=== PATIENT | male | born 1995 | race Caucasian/White ===

== ENCOUNTER 2022-05-14 19:01 | Emergency (ER) | payer SELFPAY ==
[~2022-05-14] VITALS: Ht 167.6 cm; Wt 99.8 kg
--- NOTE | 2022-05-14 19:10 | NUR ---
RECEIVED PT 27YRS MALE CAME FROM HOME C/O HEADAHE X1 DAY HX SZ
[2022-05-14 19:13] VITALS: BP 128/77
--- NOTE | 2022-05-14 19:33 | NUR ---
HAND OFF HEIDI AUGUST
[2022-05-14] MEDS ORDERED: CARBAMAZEPINE 200 MG TABLET ONE ×2 (19:48→19:51)
[2022-05-14] MEDS ORDERED: CARB200T PO (19:51)
[2022-05-14] MEDS ORDERED: CARBAMAZEPINE 200 MG TABLET PO ONE (20:00)
--- NOTE | 2022-05-14 20:10 | NUR ---
Patient discharged to home in stable condition. Written and verbal after care instructions given. Patient verbalizes understanding of instruction.
== END 2022-05-14 20:11 | disposition home or self-care (01) ==
LOC: ER 19:05
DX: Z76.0 Encounter for issue of repeat prescription (principal); Z86.69 Personal history of other diseases of the nervous system and sense organs; Z79.899 Other long term (current) drug therapy

== ENCOUNTER 2022-11-14 17:37 | Emergency (ER) | payer MEDICAID ==
[~2022-11-14] VITALS: Ht 167.6 cm; Wt 90.7 kg
[~2022-11-14 17:37] MED LIST: CARB200T PO
--- NOTE | 2022-11-14 17:45 | NUR ---
BIB [facility] 86 FROM HOME, SEIZURE EPISODE WITNESSED BY FAMILY, UNKNOWN SEIZURE MEDICATION, BLOOD SUGAR 110. PLACED IN BED, AAOX4, BREATHING EVEN AND UNLABORED SATURATING AT 97%RA.
[2022-11-14] MEDS ORDERED: CARBAMAZEPINE 200 MG TABLET PO ONE (18:00)
[2022-11-14] MEDS ORDERED: CARBAMAZEPINE 200 MG TABLET ONE (18:07)
--- NOTE | 2022-11-14 19:21 | NUR ---
Patient discharged to home in stable condition. Written and verbal after care instructions given. Patient verbalizes understanding of instruction.IV removed. Catheter intact and site benign. Pressure and 4x4 applied to site. No bleeding noted.
[2022-11-14 19:22] VITALS: BP 132/75
== END 2022-11-14 19:22 | disposition home or self-care (01) ==
LOC: ER 17:40
DX: R56.9 Unspecified convulsions (principal)